=== PATIENT | female | born 1980 | race Two or more races ===

== ENCOUNTER → 2022-11-28 | Outpatient (CLI) | payer BC ==
[2022-11-28 12:01] LABS: Eosinophils # (auto) 0.1 10 ^3/uL (0-0.8); Hematocrit 33.7 % (36.0-46.0); Lymphocytes # (auto) 2.3 10 ^3/uL (0.4-5.4); Monocytes # (auto) 0.6 10 ^3/uL (0-1.3); Red Blood Cells 4.25 10^6/uL (4.0-5.20); White Blood Cell 7.1 10^3/uL (4.4-10.8)
[2022-11-28 12:04] LABS: Basophils # (auto) 0.1 10 ^3/uL (0-0.2); Basophils % (auto) 0.8 % (0.0-2.0); Eosinophils % (auto) 1.6 % (0.0-7.0); Hemoglobin 10.8 g/dL (12.2-16.2); Lymphocytes % (auto) 32.4 % (10.0-50.0); Mean Corpuscular Hemoglobin 25.5 pg (28.0-32.0); Mean Corpuscular Hgb Conc. 32.1 g/dL (32.0-36.0); Mean Corpuscular Volume 79.5 fL (80.0-100.0); Neutrophils % (auto) 56.2 % (37.0-80.0); Red Cell Distribution Width 15.3 % (11.8-14.3)
[2022-11-28 12:20] LABS: Potassium 4.1 mmol/L (3.5-5.1)
[2022-11-28 12:27] LABS: Albumin 3.6 g/dL (3.4-5.0); BUN/Creatinine Ratio 11.5 (10.0-20.0); Bilirubin, Total 0.2 mg/dL (0.2-1.0); Calcium 8.2 mg/dL (8.5-10.1); Total Protein 6.8 g/dL (6.4-8.2)
== END | disposition home or self-care (01) ==
LOC: LAB 11:16
PROVIDERS: ATTEND Student in an Organized Health Care Education/Training Program
DX: N94.6 Dysmenorrhea, unspecified (principal); R53.82 Chronic fatigue, unspecified
CPT/HCPCS: 36415; 80053; 85025

== ENCOUNTER → 2022-12-20 | Outpatient (CLI) | payer BC ==
[2022-12-20 10:45] LABS: Follicle Stimulating Hormone 1.71 IU/L (SEE BELOW); Leuteinizing Hormone 2.1 IU/L
== END | disposition home or self-care (01) ==
LOC: LAB 09:38
PROVIDERS: ATTEND Obstetrics & Gynecology
DX: N92.6 Irregular menstruation, unspecified (principal)
CPT/HCPCS: 36415; 82670; 83001; 83002; 84403; 84443

== ENCOUNTER → 2023-01-12 | Outpatient (CLI) | payer BC | END | disposition home or self-care (01) | LOC: LAB 09:06 | PROVIDERS: ATTEND Obstetrics & Gynecology | DX: N93.9 Abnormal uterine and vaginal bleeding, unspecified (principal) | CPT/HCPCS: 86304 ==

== ENCOUNTER → 2023-01-12 | Outpatient (CLI) | payer BC | END | disposition home or self-care (01) | LOC: LAB 13:27 | PROVIDERS: ATTEND Obstetrics & Gynecology | DX: N93.9 Abnormal uterine and vaginal bleeding, unspecified (principal) ==

== ENCOUNTER → 2023-02-16 | Outpatient (CLI) | payer BC | END | disposition home or self-care (01) | LOC: LAB 10:18 | PROVIDERS: ATTEND Student in an Organized Health Care Education/Training Program | DX: E03.9 Hypothyroidism, unspecified (principal); E66.09 Other obesity due to excess calories; R79.89 Other specified abnormal findings of blood chemistry | CPT/HCPCS: 36415; 84439; 84443 ==

== ENCOUNTER → 2023-09-14 | Outpatient (CLI) | payer BC ==
[~2023-09-14] MED LIST: HYDR-4902 PO; LEV50T PO; ZOFR4T PO
[2023-09-17 10:11] LABS: Hepatitis B Core Total AB Negative (Negative)
[2023-09-17 11:01] LABS: Hepatitis A Total Antibody Positive (Negative); Hepatitis B Surface Antibody Positive (Negative); Hepatitis B Surface Antigen Negative (Negative); Hepatitis C Antibody Negative (Negative)
== END | disposition home or self-care (01) ==
LOC: LAB 13:16
PROVIDERS: ATTEND Student in an Organized Health Care Education/Training Program
DX: E03.9 Hypothyroidism, unspecified (principal); N93.9 Abnormal uterine and vaginal bleeding, unspecified
CPT/HCPCS: 36415; 84443; 86704; 86706; 86708; 86803; 87340

== ENCOUNTER → 2023-10-09 | Outpatient (CLI) | payer BC ==
[2023-10-10 07:07] LABS: RPR Non Reactive (Non Reactive)
[2023-10-10 22:06] LABS: Chlamydia Trachomatis, NAA Negative (Negative); Neisseria gonorrhoeae, NAA Negative (Negative)
== END | disposition home or self-care (01) ==
LOC: LAB 12:05
PROVIDERS: ATTEND Obstetrics & Gynecology
DX: Z72.51 High risk heterosexual behavior (principal)
CPT/HCPCS: 36415; 86592; 86703; 87340